=== PATIENT | male | born 2000 | race Caucasian/White ===

== ENCOUNTER 2019-04-29 06:20 | Day surgery (SDC) | payer OTHER, SELFPAY ==
--- NOTE | 2019-04-28 18:52 | Pre-Procedure Note/Attestation ---
Pre-Procedure Note/Attestation Complete Prior to Procedure Planned Procedure: right Procedure Narrative: Right ear myringotomy Right T-tube placement Indications for Procedure Pre-Operative Diagnosis: RIght ear chronic serous otitis media Attestation I attest that I discussed the nature of the procedure; its benefits; risks and complications; and alternatives (and the risks and benefits of such alternatives ), prior to the procedure, with the patient (or the patient's legal solar sales representative and assessor). I attest that, if there was a reasonable possibility of needing a blood transfusion, the patient (or the patient's legal solar sales representative and assessor) was given the [facility] standardized written summary, pursuant to the [place] Cristina Blood Safety Act ([place] Health and Safety Code # 1645, as amended). I attest that I re-evaluated the patient just prior to the surgery and that there has been no change in the patient's H&P. JOB # [id number] NOTE-PT HAS A FAMILY HISTORY OF MALIGNANT HYPERTHERMIA. IS OK TO DO THIS CASE WITH IV SEDATION ONLY. : José Miguel Montoya MD Apr 28, 2019 18:52
--- NOTE | 2019-04-28 18:54 | Brief Operative Note ---
Immediate Post Operative Note Operative Note Pre-op Diagnosis: RIght ear chronic serous otitis media Procedure: Right myringotomy Right T-tube placement Post-op Diagnosis: same as pre-op Surgeon: Dr. José Miguel Montoya Poultry Scientist: none Additional Surgeons: none Anesthesiologist: MD Oral Anesthesia: moderate sedation Specimen: none Complications: none Condition: stable Fluids: D5LR Estimated Blood Loss: minimal Drains: other Packing: none Implant(s) used?: Yes - T-tube José Miguel Montoya MD Apr 28, 2019 18:54
--- NOTE | 2019-04-28 19:00 | Discharge Instructions ---
Discharge Instructions Discharge Instructions Follow up with: Dr. Montoya next week at his office Diet: regular Resume Normal Activity?: Yes Activity: resume normal activities Pneumonia Vaccine: pt refused vaccine Influenza Vaccine (Nov to Apr): pt refused vaccine Follow Up Orders Ciprdex 2 drops BID x 5 days to right ear. Return to Work/School on: Apr 29, 2019 For Surgical Patients Dressing Care: may change May shower: Yes For Congestive Heart Failure Reminder Report to your physician any weight gain of 5 pounds or more in one week. José Miguel Montoya MD Apr 28, 2019 19:00
--- NOTE | 2019-04-28 23:30 | Pre-op HX & Phy Repo 2 SIG ---
DATE OF ADMISSION: 04/29/2019 INDICATION FOR SURGERY: The patient arrived with a history of ear tubes. His ear tube came out 2 to 3 weeks ago on the right side and needs a new one put in. Otherwise, he cannot hear. PAST MEDICAL HISTORY: Significant for POSSIBLE MALIGNANT hyperthermia, there is a history in the family, anxiety disorder, and otitis media right ear, tobacco use, light cigarette smoker, alcohol 2 to 3 times a month of about 3 to 4 drinks at a time. Single. No children. Denies alcohol or drug addiction. He is a self-employed manager music. PAST SURGICAL HISTORY: Ear tubes and appendectomy. As a child, he had asthma and ear infections. MEDICATIONS: Xanax. ALLERGIES: No known drug allergies. PHYSICAL EXAMINATION: VITAL SIGNS: He is 71 inches, 245 pounds, BMI 34.17. Blood pressure 120/80, temperature 98.5, pulse 75, respiratory rate 12. HEENT: Head, normocephalic. Eyes, PERRLA, EOMI. Ears, he has tube behind his right ear drum. Mouth, normal. NECK: No palpable masses. ASSESSMENT: Chronic serous otitis media in his right ear, which is amenable to ear tubes. José Miguel Montoya M.D. DR: SURYA JOB#: [id number] CC: BERNARDO
[2019-04-29] VITALS (11 sets, daily range): BP systolic 110–126; BP diastolic 49–85
[~2019-04-29] VITALS: Ht 182.9 cm; Wt 113.4 kg
[2019-04-29] MEDS ORDERED: Sterile Water Irrig 1000ml IRRIG ONE ×2 (06:21→07:30)
[2019-04-29] MEDS ORDERED: Neosporin Oph Soln 5ml Btl ONE (07:03)
[2019-04-29] MEDS ORDERED: Maxitrol Opth Susp 5ml ONE (07:03)
[2019-04-29] MEDS ORDERED: Lidocaine 1% 10mg/ml/Epi 0.005mg/ml 30ml vial INJ ONE (07:03)
[2019-04-29] MEDS ORDERED: Povidone-Iodine 5% opth solution ONE (07:03)
[2019-04-29] MEDS ORDERED: PROAIR HFA8.5 GM INH (07:07)
[2019-04-29] MEDS ORDERED: LR 1000ml 1,000 ML IVLG SCH (07:10)
--- NOTE | 2019-04-29 07:10 | Anethesia Preoperative Eval ---
Anesthesia Pre-op PMH/ROS General Date of Evaluation: Apr 29, 2019 Anesthesiologist: Oral ASA Score: ASA 2 Mallampati Score Class I : Soft palate, uvula, fauces, pillars visible Class II: Soft palate, uvula, fauces visible Class III: Soft palate, base of uvula visible Class IV: Only hard plate visible Mallampati Classification: Class III Surgeon: Lindsay Diagnosis: Right ear otitis media Surgical Procedure: Right myringotomy tube placement Anesthesia History: none, MH - family history of MH Allergies: Coded Allergies: No Known Allergies (Unverified , 04/28/19) Medications: see eMAR Patient NPO?: Yes NPO Date: Apr 29, 2019 Past Medical History Cardiovascular: Denies: HTN, CAD, [place], valve dz, arrhythmia, other Pulmonary: Reports: asthma; Denies: COPD, DARCY, other Gastrointestinal/Genitourinary: Denies: GERD, CRI, ESRD, other Neurologic/Psychiatric: Reports: depression/anxiety; Denies: dementia, CVA, TIA, other Endocrine: Denies: DM, hypothyroidism, steroids, other HEENT: Denies: cataract (L), cataract (R), glaucoma, [place] (L), [place] (R), other Hematology/Immune: Denies: anemia, DVT, bleeding disorder, other Musculoskeletal/Integumentary: Denies: OA, RA, DJD, DDD, edema, other Other: obesity PSxH Narrative: appy Anesthesia Pre-op Phys. Exam Physician Exam Last Vital Signs Date Time Temp Pulse Resp B/P (MAP) Pulse Ox O2 Delivery O2 Flow Rate FiO2 04/29/19 07:03 Room Air 04/29/19 06:59 97.3 73 18 120/59 97 Constitutional: NAD, other - flushed face=patients baseline Cardiovascular: RRR Respiratory: CTA Airway Exam Mallampati Score: Class III MO: limited ROM: limited Anesthesia Pre-op A/P Labs see chart Risk Assessment & Plan Assessment: ASA II Plan: MAC Status Change Before Surgery: No Pre-Antibiotics Drug: Ancef 2g Given Within 1 Hr of Incision: Yes Roselia Farias MD Apr 29, 2019 07:10
[2019-04-29] MEDS ORDERED: DiphenhydrAMINE 50mg/ml Inj IVP PRN (07:15)
[2019-04-29] MEDS ORDERED: fentaNYL 100 mcg/2 mL IV PRN (07:15)
[2019-04-29] MEDS ORDERED: ceFAZolin sod 1 GM in D5W 55 ML IV ONE (07:15)
[2019-04-29] MEDS ORDERED: Hydromorphone 0.5mg/0.5ml inj IVP PRN (07:15)
[2019-04-29] MEDS ORDERED: Propofol 200mg/20ml IV ONE (07:23)
[2019-04-29] MEDS ORDERED: Lidocaine 1% MPF 10mg/ml 5ml ONE (07:23)
[2019-04-29] MEDS ORDERED: fentaNYL 100 mcg/2 mL IV ONE (07:24)
[2019-04-29] MEDS ORDERED: Dexamethasone 4mg/ml vial ONE (07:25)
[2019-04-29] MEDS ORDERED: DEXAMETHASONE RIGHT EAR SCH (07:30)
[2019-04-29] MEDS ORDERED: NS Irrig 1000ml ONE (07:30)
[2019-04-29] MEDS ORDERED: CIPROFLOXACIN RIGHT EAR SCH (07:30)
[2019-04-29] MEDS ORDERED: LR 1000ml ONE (07:30)
[2019-04-29] MEDS ORDERED: Cortisporin OTIC Susp 10ml RIGHT EAR ONE (07:30)
--- NOTE | 2019-04-29 08:02 | Immediate Post-Op Evaluation ---
Immediate Post-Op Evalulation Immediate Post-Op Evalulation Procedure: Right myringotomy tube placement Date of Evaluation: Apr 29, 2019 Time of Evaluation: 08:04 IV Fluids: 300 Blood Products: 0 Estimated Blood Loss: min Urinary Output: 0 Blood Pressure Systolic: 114 Blood Pressure Diastolic: 58 Pulse Rate: 76 Respiratory Rate: 16 O2 Sat by Pulse Oximetry: 99 Temperature (Fahrenheit): 97.6 Pain Score (1-10): 0 Nausea: No Vomiting: No Complications 0 Patient Status: awake, reacts, patent, none Hydration Status: adequate Drug: Ancef 2g Given Within 1 Hr of Incision: Yes Roselia Farias MD Apr 29, 2019 08:02
--- NOTE | 2019-04-29 08:04 | 48 Hour Post Anesthesia Eval ---
Post Anesthesia Evaluation Procedure: Right myringotomy tube placement Date of Evaluation: Apr 29, 2019 Airway: patent Nausea: No Vomiting: No Pain Intensity: 0 Hydration Status: adequate Cardiopulmonary Status: at baseline Mental Status/LOC: patient returned to baseline Post-Anesthesia Complications: 0 Follow-up care needed: ready to discharge Roselia Farias MD Apr 29, 2019 08:04
[2019-04-29] MEDS ORDERED: HYDROcodone/Acetamin 5/325 tab ORAL PRN (09:00)
[2019-04-29] MEDS ORDERED: HYDROmorphone 1mg/ml Carpuject SUBQ PRN (09:00)
[2019-04-29] MEDS ORDERED: DiphenhydrAMINE 25mg Tab ORAL PRN (09:00)
[2019-04-29] MEDS ORDERED: Metoclopramide 10mg/2ml Inj IVP PRN (09:00)
--- NOTE | 2019-04-29 15:15 | Operative Note - Dictated ---
DATE OF OPERATION: 04/29/2019 SURGEON: José Miguel Montoya M.D. COMMUNITY MARKETING COORDINATOR: None. ANESTHESIOLOGIST: Dr. Mixon. ANESTHESIA: IV sedation. INDICATION FOR SURGERY: Chronic serous otitis media, right ear, having ear tube in the past elsewhere, has worked well to control it, ear tube had come out. PREOPERATIVE DIAGNOSIS: Chronic serous otitis media, right ear, having ear tube in the past elsewhere, has worked well to control it, ear tube had come out. POSTOPERATIVE DIAGNOSIS: Chronic serous otitis media, right ear, having ear tube in the past elsewhere, has worked well to control it, ear tube had come out. FINDINGS: Chronic serous otitis media, right ear, having ear tube in the past elsewhere, has worked well to control it, ear tube had come out. PROCEDURE: Right myringotomy tube placement of T-tube. TECHNIQUE: The patient was prepped and draped in usual manner via IV sedation. Area was cleaned with alcohol after a time-out. All agreed as to the equipment and procedure to be done. Under direct microscopic visualization, the ear canal was cleaned out with a curette, which had minimal cerumen in it. I then used a myringotomy knife and made a radial incision. T-tube was placed without difficulty in good position. I then proceeded to put two drops of Ciprodex suspension. Piece of cotton was put in the ear. EBL: 1 mL. COMPLICATIONS: None. DRAINS: None. COUNTS: Sponge and needle count was correct. The patient was awake, alert, and stable in the operating room prior to transfer to the recovery room. About 20 minutes later, I went to the recovery room. I met with the patient and pulled out the cotton in his ear, and he said he is hearing much better than he was before surgery. I have also spoken with his mother and grandmother in the postop area. José Miguel Montoya M.D. DR: ASHLEY JOB#: [id number] CC:
== END 2019-04-29 09:35 | disposition home or self-care (01) ==
LOC: SUR 06:20
DX: H65.21 Chronic serous otitis media, right ear (principal); Z90.89 Acquired absence of other organs; F41.9 Anxiety disorder, unspecified; F17.210 Nicotine dependence, cigarettes, uncomplicated; F32.9 Major depressive disorder, single episode, unspecified; E66.9 Obesity, unspecified; Z68.33 Body mass index [BMI] 33.0-33.9, adult
CPT/HCPCS: 69436; J0690; J1100; J2250; J2704; J3010; J7120; 94003; 94150; J7030